=== PATIENT | female | born 1995 | race Caucasian/White ===

== ENCOUNTER 2023-08-15 16:23 | Emergency (ER) | payer BC, OTHER ==
--- NOTE | 2023-08-15 16:40 | EDPHYS ---
Physician Documentation [facility] Name: Sandra Naqvi Age: 28 yrs Sex: Female : 1995 Arrival Date: 08/15/2023 Time: 16:23 Bed IW10 Private MD: ED Physician Spencer Potts MDM: 08/14 16:26 Patient medically screened. rn 16:30 ED course: patient called from lobby and no answer. cp Administered Medications: No medications were administered Disposition: 08/15 07:04 Co-signature as Attending Physician, Spencer Potts MD I reviewed the patient's care rn provided by the Advanced Practice Provider and agree with the diagnosis and treatment plan. Disposition Summary: 08/15/23 16:39 Eloped Notes: Disposition: Before Triage ap3 Reason: to labor and delivery ap3 Signatures: Dispatcher [employer] EDMS Spencer Potts MD MD rn Page, Corey, PA PA cp Prokisch, Amanda, RN RN ap3 Corrections: (The following items were deleted from the chart) 08/14 16:27 16:27 OB [email or web address] ordered. EDMS EDMS
== END 2023-08-15 16:39 | disposition left against medical advice (07) ==
LOC: ER 16:23
DX: Z02.9 Encounter for administrative examinations, unspecified (principal)